=== PATIENT | male | born 1970 ===

== ENCOUNTER → 2018-01-10 | Outpatient (CLI) | payer MEDICAID, OTHER ==
[~2018-01-10] MED LIST: ASPI-515 PO; ATOR40TA78 PO; CARV12.543 PO; CEFD300C37 PO; CLOP75TA PO; DOCU-131 PO; EZET10TA18 PO; FURO-92 PO; GABA-826 PO; HUM100IN SQ; HYDR-3241 PO; INSU100V8 SQ; LISI-167 PO; METF10002 PO; POTA20TA14 PO; WARF5TAB PO
== END | disposition home or self-care (01) ==
LOC: EDSTATUS 11:00 → CVU 11:15
PROVIDERS: ATTEND Internal Medicine Cardiovascular Disease
DX: I25.10 Atherosclerotic heart disease of native coronary artery without angina pectoris (principal); I25.5 Ischemic cardiomyopathy; E11.9 Type 2 diabetes mellitus without complications; I08.1 Rheumatic disorders of both mitral and tricuspid valves; I10 Essential (primary) hypertension; Z95.1 Presence of aortocoronary bypass graft
CPT/HCPCS: C8929

== ENCOUNTER → 2018-03-07 | Outpatient (CLI) | payer OTHER, MEDICAID ==
[~2018-03-07] MED LIST changes: +REGADENOSON 0.4 MG/5 ML SYRINGE ONE
== END | disposition home or self-care (01) ==
LOC: RAD 12:18
PROVIDERS: ATTEND Internal Medicine Cardiovascular Disease
DX: Z02.9 Encounter for administrative examinations, unspecified (principal)
CPT/HCPCS: J2785

== ENCOUNTER → 2018-03-15 | Outpatient (CLI) | payer OTHER, MEDICAID | LOC: RAD 08:52 | PROVIDERS: ATTEND Internal Medicine Cardiovascular Disease | DX: I25.10 Atherosclerotic heart disease of native coronary artery without angina pectoris (principal); I44.0 Atrioventricular block, first degree; I45.10 Unspecified right bundle-branch block | CPT/HCPCS: 78452; 93017; A9502; J2785 ==

== ENCOUNTER 2020-03-20 13:49 | Outpatient (CLI) | payer MEDICARE, MEDICAID ==
[~2020-03-20 13:49] MED LIST changes: -EZET10TA18 PO; +EZET10TA70 PO; -REGADENOSON 0.4 MG/5 ML SYRINGE ONE; -WARF5TAB PO; +WARF5TAB2 PO
== END 2020-03-20 23:59 | disposition home or self-care (01) ==
LOC: CVU 13:49 → MERGE 15:00 → CVU 23:59
PROVIDERS: ATTEND Internal Medicine Cardiovascular Disease
DX: I11.9 Hypertensive heart disease without heart failure (principal); I34.0 Nonrheumatic mitral (valve) insufficiency; I25.5 Ischemic cardiomyopathy; I25.10 Atherosclerotic heart disease of native coronary artery without angina pectoris; E11.9 Type 2 diabetes mellitus without complications
CPT/HCPCS: C8929; Q9957

== ENCOUNTER → 2021-05-09 | Outpatient (CLI) | payer MEDICARE, MEDICAID ==
[~2021-05-09] MED LIST changes: -ASPI-515 PO; +ASPI-963 PO
== END | disposition home or self-care (01) ==
LOC: CVU 12:59
PROVIDERS: ATTEND Physician Assistant
DX: I34.0 Nonrheumatic mitral (valve) insufficiency (principal); I11.9 Hypertensive heart disease without heart failure; I25.5 Ischemic cardiomyopathy
CPT/HCPCS: C8929; Q9957